=== PATIENT | female | born 1990 | race Caucasian/White ===

== ENCOUNTER 2018-09-16 11:49 | Emergency (ER) | payer BC ==
[2018-09-16 12:37] VITALS: BP 134/85
--- NOTE | 2018-09-16 13:07 | UC ---
Throat Pain/Nasal Sin HPI - HPI Summary HPI Summary: sore throat and fever x 2 days with progressive dysphagia, no vomiting, feels achey. History of well controlled ulcerative colitis, on mercaptopurine. - History of Current Complaint Chief Complaint: UCGeneralIllness Stated Complaint: ST,BODY ACHES Time Seen by Provider: 09/16/18 12:44 Hx Obtained From: Patient Hx Last Menstrual Period: 09/10/18 Onset/Duration: Gradual Onset, Lasting Days - 2 Severity: Moderate Pain Intensity: 5 Cough: None Associated Signs & Symptoms: Positive: Dysphagia, Hoarseness - Epiglottits Risk Factors Epiglottis Risk Factors: Negative - Allergies/Home Medications Allergies/Adverse Reactions: Allergies Allergy/AdvReac Type Severity Reaction Status Date / Time No Known Allergies Allergy Verified 09/16/18 12:33 Home Medications: Home Medications Ethinyl Estradiol/Drospirenone [Desiree 28 Tablet (Nf)] 1 each PO DAILY 09/16/18 [ History Confirmed 09/16/18] Mercaptopurine TAB* [Purinethol TAB*] 50 mg PO DAILY 09/16/18 [History Confirmed 09/16/18] PMH/Surg Hx/FS Hx/Imm Hx GI/ History: Other - ulcerative colitis - Surgical History Surgical History: None - Family History Known Family History: Positive: Other - no hx of ulcerative colitis, Non- Contributory - Social History Occupation: Employed Full-time Lives: With Family Alcohol Use: Rare Substance Use Type: None Smoking Status (MU): Never Smoked Tobacco Review of Systems All Other Systems Reviewed And Are Negative: Yes Constitutional: Positive: Fever, Fatigue Skin: Positive: Negative Eyes: Positive: Negative ENT: Positive: Sore Throat Respiratory: Positive: Negative Cardiovascular: Positive: Negative Gastrointestinal: Positive: Negative Genitourinary: Positive: Negative Motor: Positive: Negative Neurovascular: Positive: Negative Musculoskeletal: Positive: Arthralgia Neurological: Positive: Negative Psychological: Positive: Negative Is Patient Immunocompromised?: No Physical Exam Triage Information Reviewed: Yes Appearance: Ill-Appearing - looks unwell Vital Signs: Initial Vital Signs Temp 101.6 F 09/16/18 12:31 Pulse 110 09/16/18 12:31 Resp 16 09/16/18 12:31 BP 134/85 09/16/18 12:31 Pulse Ox 100 09/16/18 12:31 ENT: Positive: Pharyngeal erythema, Tonsillar swelling, Tonsillar exudate Neck: Positive: Supple, Nontender, Enlarged Nodes @ - tonsillar Respiratory: Positive: Lungs clear, Normal breath sounds Cardiovascular: Positive: RRR, No Murmur Neurological: Positive: Alert, Muscle Tone Normal Psychological Exam: Normal Skin Exam: Normal Diagnostics - Laboratory Diagnostic Studies Completed/Ordered: + rapid strep Throat Pain/Nasal Course/Dx - Course Course Of Treatment: amoxicillin for strep tonsillitis. - Differential Dx/Diagnosis Differential Diagnosis/HQI/PQRI: Influenza, Pharyngitis, Tonsillitis Provider Diagnosis: Tonsillitis Discharge - Sign-Out/Discharge Documenting (check all that apply): Patient Departure All imaging exams completed and their final reports reviewed: No Studies - Discharge Plan Condition: Stable Disposition: HOME Prescriptions: Amoxicillin PO (*) [Amoxicillin 875 MG (*)] 875 mg PO BID #20 tab Patient Education Materials: Strep Throat (ED) Referrals: No Primary Care Phys,NOPCP [Primary Care Provider] - Additional Instructions: Use ibuprofen as needed for relief of pain, and take full course of antibiotic to treat strep. - Billing Disposition and Condition Condition: STABLE Disposition: Home
[2018-09-16 13:12] LABS: Influenza A Molecular NEGATIVE (Negative); Influenza B Molecular NEGATIVE (Negative)
== END 2018-09-16 13:18 | disposition home or self-care (01) ==
LOC: UCCORT 11:49
DX: J03.90 Acute tonsillitis, unspecified (principal); K51.90 Ulcerative colitis, unspecified, without complications; Z79.899 Other long term (current) drug therapy
CPT/HCPCS: 87651; 99202; G0463

== ENCOUNTER 2018-10-14 11:13 | Emergency (ER) | payer BC ==
[2018-10-14 11:37] VITALS: BP 133/83
--- NOTE | 2018-10-14 12:05 | UC ---
Throat Pain/Nasal Sin HPI - HPI Summary HPI Summary: 28-year-old female presents with 4 day history of fever and sore throat. Associated with fatigue, general malaise, and myalgias. Denies nasal congestion , runny nose, ear pain, dysphagia, cough, chest pain, shortness of breath, abdominal pain, nausea, vomiting, or diarrhea. - History of Current Complaint Chief Complaint: UCGeneralIllness Stated Complaint: SORE THROAT Time Seen by Provider: 10/14/18 11:52 Hx Obtained From: Patient Hx Last Menstrual Period: 10/07/18 Pain Intensity: 8 - Allergies/Home Medications Allergies/Adverse Reactions: Allergies Allergy/AdvReac Type Severity Reaction Status Date / Time No Known Allergies Allergy Verified 10/14/18 11:34 Home Medications: Home Medications Acetaminophen TAB* [Tylenol TAB*] 975 mg PO Q6H PRN 10/14/18 [History Confirmed 10/14/18] PMH/Surg Hx/FS Hx/Imm Hx Previously Healthy: Yes Other GI/ History: Ulcerative colitis - Surgical History Surgical History: None - Family History Known Family History: Positive: Non-Contributory - Social History Occupation: Unemployed Lives: With Family Alcohol Use: Rare Substance Use Type: None Smoking Status (MU): Never Smoked Tobacco Review of Systems All Other Systems Reviewed And Are Negative: Yes Constitutional: Positive: Fever, Chills, Fatigue Skin: Negative: Rash Eyes: Negative: Drainage, Eye Redness ENT: Positive: Sore Throat. Negative: Ear Ache, Nasal Discharge, Sinus Congestion, Sinus Pain/Tenderness Respiratory: Negative: Shortness Of Breath, Cough Cardiovascular: Negative: Palpitations, Chest Pain Gastrointestinal: Negative: Abdominal Pain, Vomiting, Diarrhea, Nausea Genitourinary: Positive: Negative Musculoskeletal: Positive: Myalgia Neurological: Positive: Negative Is Patient Immunocompromised?: No Physical Exam - Summary Physical Exam Summary: GENERAL APPEARANCE: Well developed, well nourished, alert and cooperative, and appears to be in no acute distress. EYES: Conjunctiva clear. No drainage. Vision is grossly intact. EARS: External auditory canals and tympanic membranes clear, hearing grossly intact. NOSE: No nasal discharge. THROAT: Pharyngeal erythema. 2+ tonsils with exudate. Uvula midline. NECK: Neck supple, non-tender. Mild-moderate anterior cervical lymphadenopathy. CARDIAC: Normal S1 and S2. No S3, S4 or murmurs. Rhythm is regular. There is no peripheral edema, cyanosis or pallor. Extremities are warm and well perfused. Capillary refill is less than 2 seconds. Peripheral pulses intact. LUNGS: Clear to auscultation without rales, rhonchi, wheezing or diminished breath sounds. ABDOMEN: Positive bowel sounds. Soft, nondistended, nontender. No guarding or rebound. No masses or hepatosplenomegally. MUSKULOSKELETAL: ROM intact to all extremities. No joint erythema or tenderness. Normal muscular development. Normal gait. SKIN: Skin normal color, texture and turgor with no lesions or eruptions. Triage Information Reviewed: Yes Vital Signs: Initial Vital Signs Temp 98.8 F 10/14/18 11:32 Pulse 96 10/14/18 11:32 Resp 18 10/14/18 11:32 BP 133/83 10/14/18 11:32 Pulse Ox 100 10/14/18 11:32 Vital Signs Reviewed: Yes Throat Pain/Nasal Course/Dx - Course Course Of Treatment: 28-year-old female presents with 4 day history of fever and sore throat. Associated with fatigue, general malaise, and myalgias. Denies nasal congestion , runny nose, ear pain, dysphagia, cough, chest pain, shortness of breath, abdominal pain, nausea, vomiting, or diarrhea. Afebrile. Vital signs stable. Exam reveals an adult female in no acute distress with pharyngeal erythema, 2+ tonsils with exudate, anterior cervical lymphadenopathy, and otherwise unremarkable exam. Rapid strep test was positive. Will treat her with penicillin VK 500 mg twice a day 10 days as well as symptomatic treatment. She is to return here or follow-up with her primary care provider in 7 days if symptoms do not improve. Anticipatory guidance and warning symptoms were reviewed with the patient. Verbalizes understanding and agrees with plan of care. - Differential Dx/Diagnosis Differential Diagnosis/HQI/PQRI: Pharyngitis, Sinusitis, Tonsillitis, URI Provider Diagnosis: Strep pharyngitis Discharge - Sign-Out/Discharge Documenting (check all that apply): Patient Departure All imaging exams completed and their final reports reviewed: No Studies - Discharge Plan Condition: Stable Disposition: HOME Prescriptions: Penicillin VK 500 MG TAB(NF) [Penicillin VK 500 mg Tab] 500 mg PO BID #20 tab Patient Education Materials: Strep Throat (ED) Referrals: No Primary Care Phys,NOPCP [Primary Care Provider] - Additional Instructions: Your rapid strep test in the clinic today was positive. We will start you on an antibiotic to treat the infection. Start Penicillin VK 500 mg 1 tab twice a day for 10 days. After you have been on antibiotics for 3 days, throw out your toothbrush and replace with a new one to prevent reinfection. Drink plenty of fluids to avoid dehydration especially if you are running any fever. Use salt water gargles several times a day. Take over the counter acetaminophen (Tylenol) or ibuprofen (Advil, Motrin) according to directions as needed for pain or fever. You may also use Chloraseptic spray or Cepacol lonzenges according to directions which contain a numbing medication and can provide some temporary relief from your sore throat. Return here or follow up with your primary care provider if symptoms persist for more than 10 days or if you have any worsening of symptoms. Seek immediate medical attention in the emergency room if you have fever greater than 100.5 F despite taking acetaminophen or ibuprofen, are unable to swallow or develop drooling, are unable to open your mouth fully, are unable to eat or drink, have pain that is not relieved with over the counter pain medication, or have any difficulty breathing. - Billing Disposition and Condition Condition: STABLE Disposition: Home - Attestation Statements Provider Attestation: Per institutional requirements, I have reviewed the chart, however, I was not consulted specifically or made aware of this patient by the midlevel provider. I did not personally evaluate, interact with , or disposition this patient.
== END 2018-10-14 12:12 | disposition home or self-care (01) ==
LOC: UCCORT 11:13
DX: J02.0 Streptococcal pharyngitis (principal)
CPT/HCPCS: 87651; 99212; G0463